=== PATIENT | male | born 1980 | race Caucasian/White ===

== ENCOUNTER 2018-08-07 11:54 | Emergency (ER) | payer MEDICAID, BC ==
[~2018-08-07] VITALS: Ht 175.3 cm; Wt 77.3 kg
[2018-08-07 11:59] VITALS: Ht 175.3 cm; Wt 77.3 kg
[2018-08-07 12:30] LABS: BASOPHILS 0.3 % (0-2); EOSINOPHILS 3.6 % (0-7); HEMATOCRIT 41.3 % (42.0-54.0); HEMOGLOBIN 13.9 g/dL (13.5-17.5); IMMATURE GRANULOCYTES 0.1 % (0-5); LYMPHOCYTES 35.2 % (15-50); MCHC 33.7 g/dL (31.0-37.0); MEAN PLATELET VOLUME 9.1 fL (7.4-10.4); MONOCYTES 8.1 % (2-11); NEUTROPHILS 52.7 % (40-80); PLATELET COUNT 261 10x3/uL (130-400); RBC 4.64 10x6/uL (4.20-6.10); RDW 13.6 % (11.5-14.5); WBC 6.9 10x3/uL (4.8-10.8)
[2018-08-07 12:38] LABS: ANION GAP 14.3 mmol/L (8-16); BILIRUBIN - TOTAL 0.24 mg/dL (0.2-1.3); CALCIUM 8.9 mg/dL (8.5-10.1); CARBON DIOXIDE 27.3 mmol/L (21.0-32.0); CREATININE - SERUM 1.3 mg/dL (0.6-1.3); POTASSIUM - SERUM 3.6 mmol/L (3.5-5.1); PROTEIN - SERUM 7.4 g/dL (6.4-8.2)
[2018-08-07 13:03] LABS: APPEARANCE CLEAR (CLEAR); COLOR YELLOW (YELLOW); GLUCOSE NEGATIVE (NEGATIVE); KETONE NEGATIVE (NEGATIVE); NITRITE NEGATIVE (NEGATIVE); PROTEIN NEGATIVE (NEGATIVE); SPECIFIC GRAVITY 1.005 (1.005-1.020); UROBILINOGEN NORMAL (NORMAL)
[2018-08-07 13:04] LABS: BILIRUBIN NEGATIVE (NEGATIVE)
[2018-08-07] MEDS ORDERED: FLORASTOR250 MG PO (14:40)
[2018-08-07 15:09] VITALS: BP 147/88
== END 2018-08-07 15:10 | disposition home or self-care (01) ==
LOC: D.ER 11:54
PROVIDERS: Family Medicine
DX: R19.7 Diarrhea, unspecified (principal); R10.9 Unspecified abdominal pain

== ENCOUNTER 2018-08-15 10:01 | Emergency (ER) | payer MEDICAID ==
[~2018-08-15] VITALS: Ht 175.3 cm; Wt 77.3 kg
[~2018-08-15 10:01] MED LIST: FLORASTOR250 MG PO
[2018-08-15 10:10] VITALS: Ht 175.3 cm; Wt 77.3 kg
[2018-08-15] MEDS ORDERED: SAPHRIS5 MG SL (10:16)
[2018-08-15] MEDS ORDERED: SEROQUEL25 MG PO (10:34)
[2018-08-15 10:38] VITALS: BP 158/89
== END 2018-08-15 10:40 | disposition home or self-care (01) ==
LOC: D.ER 10:01
DX: G47.00 Insomnia, unspecified (principal); F20.9 Schizophrenia, unspecified